=== PATIENT | female | born 1965 | race Caucasian/White ===

== ENCOUNTER → 2017-09-07 | Outpatient (CLI) | payer BC ==
--- NOTE | 2017-09-07 14:59 | RADIOLOGY IMAGING REPORT ---
FACILITY: [facility] PATIENT NAME: Judy Stone : 1965 MR: [id number] V: [id number] EXAM DATE: ORDERING PHYSICIAN: MANUEL JONES TECHNOLOGIST: Location: [facility] Patient: Judy Stone : 1965 Visit/Account:[id number] Date of Sevice: 09/07/2017 KNEE RIGHT W/O CONTRAST HISTORY: Right knee pain COMPARISON: None TECHNIQUE: Multiplanar/multisequence was obtained through the right knee without contrast. Contrast: None FINDINGS: ACL: Intact with a normal contour through the intracondylar notch. PCL: Normal MCL: Normal LCL: Fibular collateral ligament, biceps femoris tendon and popliteus tendons are intact. Iliotibial band is normal. Medial joint space: No medial meniscal tear. Articular cartilage is normal. Lateral joint space: No lateral meniscal tear. Articular cartilage is normal. Joint effusion: Small joint effusion. Popliteal cyst: Small popliteal cyst. Bone marrow: Normal Quadriceps and patellar tendons: Normal Patellofemoral joint: Normal articular cartilage. The retinaculum are intact. No patellar subluxation . Soft tissues: Normal Other findings: None significant IMPRESSION: 1. Negative examination for discrete meniscal tear or ligamentous injury. 2. Small joint effusion. Report Dictated By: Aldo Benítez MD at 09/07/2017 2:50 PM Report E-Signed By: Aldo Benítez MD at 09/07/2017 2:54 PM WSN:[id number]
== END ==
LOC: MRI 02:05
PROVIDERS: ATTEND Emergency Medicine
DX: M25.461 Effusion, right knee (principal)